=== PATIENT | male | born 1970 | race Caucasian/White ===

== ENCOUNTER 2019-11-22 07:16 | Outpatient (CLI) | payer BC, SELFPAY ==
--- NOTE | 2019-11-22 07:33 | ECG_ITS ---
NAME OF STUDY: DOBUTAMINE SESTAMIBI STRESS TEST INDICATION: MIDSTERNAL CHEST PAIN, PROCEDURE: At the baseline, the blood pressure was 155/83 with a heart rate of 70. The electrocardiogram showed normal sinus rhythm with a poor R wave progression. Some nonspecific T wave changes. The dobutamine was infused over a period of 30 minutes and 45 seconds. The maximum heart rate obtained was 147 (86 % of the maximum predicted heart rate). The blood pressure at that time was 156/89 mmHg. The patient did not have any chest pain or any significant electrocardiogram changes with the dobutamine infusion. The physical examination remained unchanged. No arrhythmias were seen on the monitor. Sestamibi was injected at the peak heart rate. During the recovery phase, the patient did not have any specific symptoms. The blood pressure at the end of the recovery phase was 156/108 with a heart rate of 99 per minute. CONCLUSION: 1. No significant EKG changes with dobutamine infusion 2. Not doing to induced chest pain or cardiac arrhythmia 3. Normal blood pressure and heart rate response to dobutamine infusion 4. Sestamibi/Sestamibi perfusion scan pending; see separate report. Electronically Signed On 11-23-2019 10:44:45 CDT by Jason Mayorga M.D. [email or web address]
--- NOTE | 2019-11-22 07:34 | NMCV_ITS ---
NM lisa perf SPECT r/s* [id number] Chuck Ashley Age: 49 Gender: M : 1970 Exam Date: 11/22/2019 08:13 Ordering Phys: Linnea Martinez DO Technologist: GINO Hunt Exam Location: [facility] Indications: MIDSTERNAL CHEST PAIN STRESS TEST Please see separate stress test report in [facility] for full findings IMAGE PROTOCOL Rest/Stress 1 Dobutamine Day Radiopharmaceutical Dose (mCi) Administration Site Administered by Rest: Tc-99m 10.8 IV GINO Hunt Sestamibi Stress:Tc-99m 32.6 IV GINO Gallego Sestamibi Rest: 22-Nov-2019 60 Discovery 630 Stress: 22-Nov-2019 15 Discovery 630 Radiopharmaceutical was injected at 85 % maximum heart rate. Images obtained in supine and prone position. SPECT RESULTS Technical Quality: Excellent Raw Data Analysis: Normal Image Corrections: No attenuation or motion correction applied Summed Stress Score: 0 Summed Rest Score: 4 Summed Difference Score: 0 PERFUSION FINDINGS Patchy areas of slightly decreased tracer uptake were noted in the inferior wall and apical regions. No significant reversibility was noted. FUNCTIONAL RESULTS (calculated via Gated SPECT) Stress Image LV EF (%): 46 Stress EDV (mL):154 TID: 0.96 Stress ESV (mL):83 FUNCTIONAL FINDINGS: Mild hypokinesia of the LV apex. IMPRESSIONS 1. Myocardial perfusion imaging revealing patchy areas of slightly decreased persistent tracer uptake in the inferior wall and apical regions, suggestive of myocardial scarring versus attenuation artifact. 2. Slightly diminished LV ejection fraction of 46%. 3. LV wall motion analysis revealing wall motion normalities as mentioned above. 4. Mildly dilated LV cavity with an end-systolic volume of 83 mL The above features may suggest some form of nonischemic cardiomyopathy. Clinical correlation is recommended. No previous studies available for comparison. Dr Jason Mayorga MD FACC (Electronically Signed) Final Date: 22 Nov 2019 13:07 S
[2019-11-22 07:36] VITALS: BMI 29.5
[2019-11-22] MEDS: DOBUTtamine 200 MG in sodium chloride 0.9% 34 ML 74.2 MG IV (08:56)
[2019-11-22] MEDS: atropine 0.1 mg/mL Syr 10 mL 0.5 MG IVP (09:02)
[2019-11-22] MEDS: metoprolol tartrate 1 mg/1 mL SDV 5 mL 5 MG IV (09:10)
[2019-11-22 10:11] VITALS: BP 158/108; PULSE 96
== END 2019-11-22 07:17 | disposition home or self-care (01) ==
LOC: RAD 07:19 → CCL 07:37 → CDL 07:47
PROVIDERS: PCP Family Medicine; Visit Provider Family Medicine
DX: R07.89 Other chest pain (principal)
CPT/HCPCS: 78452; 93017; A9500; J0461; J1250; J3490; J7050

== ENCOUNTER → 2019-12-02 14:14 | Outpatient (BNVA) | payer BC, SELFPAY | PROVIDERS: PCP Family Medicine; Visit Provider Family Medicine | DX: I10 Essential (primary) hypertension (principal); N52.9 Male erectile dysfunction, unspecified | CPT/HCPCS: 80048 ==

== ENCOUNTER → 2020-05-15 08:58 | Outpatient (BNVA) | payer BC, SELFPAY | PROVIDERS: PCP Family Medicine; Referring Provider Family Medicine; Visit Provider Family Medicine | DX: I10 Essential (primary) hypertension (principal); E78.2 Mixed hyperlipidemia | CPT/HCPCS: 80053; 80061; 82043; 84403; 85025 ==

== ENCOUNTER → 2020-05-16 14:08 | Outpatient (BNVA) | payer BC, SELFPAY | PROVIDERS: PCP Family Medicine; Referring Provider Family Medicine; Visit Provider Family Medicine | DX: R73.09 Other abnormal glucose (principal) | CPT/HCPCS: 83036 ==

== ENCOUNTER → 2020-11-30 10:28 | Outpatient (BNVA) | payer BC, SELFPAY | PROVIDERS: PCP Family Medicine; Visit Provider Family Medicine | DX: I10 Essential (primary) hypertension (principal); K21.9 Gastro-esophageal reflux disease without esophagitis; R53.83 Other fatigue; R73.03 Prediabetes; E78.2 Mixed hyperlipidemia; R53.82 Chronic fatigue, unspecified; F17.229 Nicotine dependence, chewing tobacco, with unspecified nicotine-induced disorders; Z68.42 Body mass index [BMI] 45.0-49.9, adult | CPT/HCPCS: 80053; 83036; 84443 ==

== ENCOUNTER → 2021-05-20 11:31 | Outpatient (BNVA) | payer BC, SELFPAY | PROVIDERS: PCP Family Medicine; Visit Provider Family Medicine | DX: E78.2 Mixed hyperlipidemia (principal); E34.9 Endocrine disorder, unspecified; I10 Essential (primary) hypertension; R73.03 Prediabetes; G47.00 Insomnia, unspecified; K21.9 Gastro-esophageal reflux disease without esophagitis; N52.8 Other male erectile dysfunction; L82.1 Other seborrheic keratosis; F51.04 Psychophysiologic insomnia; F17.229 Nicotine dependence, chewing tobacco, with unspecified nicotine-induced disorders | CPT/HCPCS: 80053; 80061; 83036; 84403; 85025 ==

== ENCOUNTER → 2021-08-02 14:50 | Outpatient (BNVA) | payer BC, SELFPAY | PROVIDERS: PCP Family Medicine; Visit Provider Nurse Practitioner Family | DX: Z20.822 Contact with and (suspected) exposure to COVID-19 (principal); J02.9 Acute pharyngitis, unspecified | CPT/HCPCS: 87635; 87880 ==

== ENCOUNTER → 2021-12-13 11:42 | Outpatient (BNVA) | payer BC, SELFPAY | PROVIDERS: PCP Family Medicine; Visit Provider Family Medicine | DX: E78.2 Mixed hyperlipidemia (principal); E34.9 Endocrine disorder, unspecified; I10 Essential (primary) hypertension; R73.03 Prediabetes; Z23 Encounter for immunization; G47.00 Insomnia, unspecified | CPT/HCPCS: 80053; 83036 ==

== ENCOUNTER → 2022-06-13 11:33 | Outpatient (BNVA) | payer BC, SELFPAY | PROVIDERS: PCP Family Medicine; Visit Provider Family Medicine | DX: R05.9 Cough, unspecified (principal); R50.9 Fever, unspecified; I10 Essential (primary) hypertension; E78.2 Mixed hyperlipidemia; R73.03 Prediabetes; E34.9 Endocrine disorder, unspecified; J10.1 Influenza due to other identified influenza virus with other respiratory manifestations | CPT/HCPCS: 80053; 80061; 82043; 83036; 84403; 85025; 87400; 87426 ==

== ENCOUNTER → 2022-07-21 09:51 | Outpatient (BNVA) | payer BC, SELFPAY | PROVIDERS: PCP Family Medicine; Visit Provider Family Medicine | DX: E34.9 Endocrine disorder, unspecified (principal) | CPT/HCPCS: 84403 ==

== ENCOUNTER → 2022-10-24 09:27 | Outpatient (BNVA) | payer BC, SELFPAY | PROVIDERS: PCP Family Medicine; Visit Provider Family Medicine | DX: E34.9 Endocrine disorder, unspecified (principal) | CPT/HCPCS: 84403 ==

== ENCOUNTER → 2022-12-12 10:13 | Outpatient (BNVA) | payer BC, SELFPAY | PROVIDERS: PCP Family Medicine; Visit Provider Family Medicine | DX: M25.50 Pain in unspecified joint (principal); I10 Essential (primary) hypertension; E34.9 Endocrine disorder, unspecified | CPT/HCPCS: 80053; 84403; 85025; 85651; 86038; 86140; 86200; 86431 ==

== ENCOUNTER → 2023-02-27 09:07 | Outpatient (BNVA) | payer BC, SELFPAY | PROVIDERS: PCP Family Medicine; Referring Provider Family Medicine; Visit Provider Family Medicine | DX: E34.9 Endocrine disorder, unspecified (principal) | CPT/HCPCS: 84403 ==

== ENCOUNTER → 2023-03-13 11:09 | Outpatient (BNVA) | payer BC, SELFPAY | PROVIDERS: PCP Family Medicine; Visit Provider Family Medicine | DX: M25.50 Pain in unspecified joint (principal) | CPT/HCPCS: 80048 ==

== ENCOUNTER → 2023-05-26 10:55 | Outpatient (BNVA) | payer BC, SELFPAY | PROVIDERS: PCP Family Medicine; Visit Provider Family Medicine | DX: R73.03 Prediabetes (principal); G47.33 Obstructive sleep apnea (adult) (pediatric) | CPT/HCPCS: 80053; 83036 ==

== ENCOUNTER → 2023-06-22 11:49 | Outpatient (BNVA) | payer BC, SELFPAY | PROVIDERS: PCP Family Medicine; Visit Provider Family Medicine | DX: R73.03 Prediabetes (principal); Z12.5 Encounter for screening for malignant neoplasm of prostate | CPT/HCPCS: 80053; 80061; 82043; G0103 ==

== ENCOUNTER → 2023-09-18 08:46 | Outpatient (BNVA) | payer BC, SELFPAY | PROVIDERS: PCP Family Medicine; Referring Provider Family Medicine; Visit Provider Family Medicine | DX: Z13.6 Encounter for screening for cardiovascular disorders (principal); E34.9 Endocrine disorder, unspecified | CPT/HCPCS: 84403; 85025 ==

== ENCOUNTER → 2023-10-23 16:01 | Outpatient (BNVA) | payer BC, SELFPAY | PROVIDERS: PCP Family Medicine; Visit Provider Family Medicine | DX: R73.03 Prediabetes (principal) | CPT/HCPCS: 80053; 83036 ==

== ENCOUNTER → 2024-02-07 12:04 | Outpatient (BNVA) | payer BC, SELFPAY | PROVIDERS: Visit Provider Nurse Practitioner | DX: R68.89 Other general symptoms and signs (principal); J06.9 Acute upper respiratory infection, unspecified; J32.9 Chronic sinusitis, unspecified | CPT/HCPCS: 87400; 87426 ==

== ENCOUNTER → 2024-05-11 10:04 | Outpatient (BNVA) | payer BC, SELFPAY | PROVIDERS: PCP Nurse Practitioner; Visit Provider Nurse Practitioner | DX: R73.03 Prediabetes (principal) | CPT/HCPCS: 80053; 83036 ==

== ENCOUNTER 2024-08-17 20:00 | Outpatient (CLI) | payer BC, SELFPAY | END 2024-08-17 20:01 | disposition home or self-care (01) | LOC: SLEEP 23:51 | PROVIDERS: PCP Nurse Practitioner; Visit Provider Nurse Practitioner | DX: G47.33 Obstructive sleep apnea (adult) (pediatric) (principal); I10 Essential (primary) hypertension; R53.82 Chronic fatigue, unspecified | CPT/HCPCS: 95810 ==

== ENCOUNTER → 2024-10-10 13:43 | Outpatient (BNVA) | payer BC, SELFPAY | PROVIDERS: PCP Nurse Practitioner; Visit Provider Nurse Practitioner | DX: E34.9 Endocrine disorder, unspecified (principal) | CPT/HCPCS: 84402; 84403 ==

== ENCOUNTER → 2025-05-03 11:08 | Outpatient (BNVA) | payer BC, SELFPAY | PROVIDERS: PCP Nurse Practitioner; Visit Provider Nurse Practitioner | DX: I10 Essential (primary) hypertension (principal); R73.03 Prediabetes; E78.2 Mixed hyperlipidemia | CPT/HCPCS: 80053; 80061; 83036; 85025 ==